=== PATIENT | female | born 1950 | race Caucasian/White ===

== ENCOUNTER → 2023-03-24 09:45 | Outpatient (BNVA) | payer MEDICARE, MEDICAID, SELFPAY | PROVIDERS: Visit Provider Nurse Practitioner Family | DX: J02.9 Acute pharyngitis, unspecified (principal) | CPT/HCPCS: 87071; 87880 ==

== ENCOUNTER 2024-06-19 11:28 | Emergency (ER) | payer MEDICARE, MEDICAID, SELFPAY ==
[2024-06-19 11:34] VITALS: BP 144/73; PULSE 72; RESP 18; TEMP 36.8; O2SAT 94; BMI 15.5
--- NOTE | 2024-06-19 12:33 | XRR_ITS ---
PROCEDURE INFORMATION: Exam: XR Chest Exam date and time: 06/19/2024 1:11 PM Age: 74 years old Clinical indication: Cough and dyspnea; Additional info: Dyspnea/cough TECHNIQUE: Imaging protocol: Radiologic exam of the chest. Views: 1 view. COMPARISON: No relevant prior studies available. FINDINGS: Lungs: No focal consolidation. Severe emphysematous changes with bullae in the right lung base. Pleural spaces: No evidence of pneumothorax. No evidence of pleural effusion. Heart/Mediastinum: Cardiomediastinal silhouette is narrowed. Bones/joints: No evidence of acute osseous abnormality. XR/XR chest 1V portable [id number] IMPRESSION: 1. No acute cardiopulmonary abnormality. 2. Severe emphysematous changes.
[2024-06-19] MEDS: sodium chloride 0.9% 1,000 ML 999 ML IV (12:54)
--- NOTE | 2024-06-19 13:03 | CTR_ITS ---
PROCEDURE INFORMATION: Exam: CT Abdomen And Pelvis With Contrast Exam date and time: 06/19/2024 2:26 PM Age: 74 years old Clinical indication: Abdominal pain; Generalized; Additional info: Abd pain TECHNIQUE: Imaging protocol: Computed tomography of the abdomen and pelvis with contrast. Radiation optimization: All CT scans at this facility use at least one of these dose optimization techniques: automated exposure control; mA and/or kV adjustment per patient size (includes targeted exams where dose is matched to clinical indication); or iterative reconstruction. Contrast material: OMNI 350; Contrast volume: 100 ml; Contrast route: INTRAVENOUS (IV); COMPARISON: CR XR chest 1V portable [id number] 06/19/2024 1:11 PM RADIATION DOSE METRICS: Total DLP (mGy-cm): 267.65 FINDINGS: Lungs: Severe emphysematous changes with a large 11.5 x 10.0 cm right basilar bulla. Diaphragm: No evidence of diaphragmatic defect. Liver: No focal hepatic lesion. Gallbladder and biliary ducts: Unremarkable. No intra-hepatic or extra-hepatic biliary dilatation. Pancreas: Unremarkable. Spleen: Unremarkable. Adrenal glands: Unremarkable. Kidneys and ureters: No renal parenchymal abnormality. There is bilateral pelviectasis without hydronephrosis. There are two small stones in the left UVJ, the largest of which measures 3 mm in the smaller 1 mm, apparently nonobstructive or minimally obstructive. There is indeterminate mildly dense material within the distal left ureter, possibly loose calcifications (image 59 of series 4 and image 15 of series 6). An underlying urothelial lesion would be difficult to exclude. Stomach and bowel: Colonic diverticulosis without evidence of acute diverticulitis. No bowel obstruction or perienteric inflammatory changes. There are few loops of mildly prominent thickened small bowel in the left hemiabdomen raising the question of a nonspecific enteritis. Appendix: Normal appendix. Intraperitoneal space: No evidence of free air or fluid collection. 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 The celiac trunk, SMA and MERLYN are grossly patent. No evidence of IVC thrombus. The portal vein, SMV and splenic veins are grossly patent. Lymph nodes: No adenopathy. Urinary bladder: Grossly unremarkable. Reproductive: Grossly unremarkable. Bilateral tubal ligation clips noted. Bones/joints: No evidence of acute fracture or aggressive osseous lesion. 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 Soft tissues: No evidence of fluid collection or hematoma in the superficial soft tissues. CT/CT abdomen pelvis w con* [id number] IMPRESSION: 1. Two small stones in the left UVJ without hydronephrosis, apparently nonobstructive or minimally obstructive. There is also indeterminate mildly dense material within the distal left ureter, possibly loose calcifications. An underlying urothelial lesion would be difficult to exclude. Consider follow-up urologic evaluation and CT urogram. 2. Possible nonspecific enteritis. 3. 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 Consider follow-up vascular evaluation.
--- NOTE | 2024-06-19 13:28 | ECG_ITS ---
[facility] Test Date: 2024-06-19 Pat Name: Trang Hernandez Department: Room: Gender: Female Telephone Collector: : 1950 Requested By: Mike Juarez Order Number: [id number] Allen MD: Ej Murillo M.D. Measurements Intervals [place] Rate: 73 P: 79 AL: 128 QRS: 80 QRSD: 77 T: 73 QT: 426 QTc: 470 Interpretive Statements SINUS RHYTHM No previous ECG available for comparison Electronically Signed On 06-19-2024 15:34:39 CDT by Ej Murillo M.D. [id number]
[2024-06-19 13:30] LABS: Protein Urine Neg (Negative); Urine Appearance Clear (CLEAR); Urine Color Yellow (Yellow); pH Urine 5 (5-7)
[2024-06-19 13:31] LABS: Add Urine Microscopic? YES; Bacteria Urine TRACE /hpf; Bilirubin Urine Neg (Negative); Blood Urine 3+ (Negative); Glucose Urine UA Norm (Normal); Ketones Urine Negative (Negative); Leukocyte Esterase Urine 1+ (Negative); Mucus Urine 1+ /hpf; Nitrate Urine Negative (Negative); RBC Urine 15-25 /hpf (0-2); Squamous Epithelial Cell Urine 0-4 /hpf (0-5); Urobilinogen Urine Neg (Negative)
[2024-06-19 13:32] LABS: Add Urine Culture? Yes; Hyaline Casts Urine 0-4 /lpf
[2024-06-19 13:47] LABS: Basophils % 0.6 %; Eosinophils # 0.1 10^3/uL (0.0-0.8); Eosinophils % 1.2 %; Hematocrit 40.2 % (36-47); Lymphocytes # 0.9 10^3/uL (0.8-4.8); Lymphocytes % 13.1 %; Mean Corpuscular HGB Conc 32.6 g/dL (30-55); Mean Corpuscular Hemoglobin 30.1 pg (27-33); Mean Corpuscular Volume 92.4 fl (85-98); Mean Platelet Volume 9.7 fL (7.4-10.4); Monocytes # 0.4 10^3/uL (0.2-0.9); Monocytes % 5.5 %; Neutrophils # 5.19 10^3/uL (1.8-7.7); Neutrophils % 79.4 %; Nucleated Red Blood Cells % 0 %; Platelet Count 197 10^3/cmm (157-399); Red Blood Count 4.35 10^6/uL (3.85-5.65); Red Cell Distribution Width 12.7 % (12.1-15.1); White Blood Count 6.54 10^3/uL (3.29-11.43)
[2024-06-19 14:10] LABS: Alanine Aminotransferase 10 U/L (0-33); Albumin Level 3.6 g/dL (3.5-5.2); Alkaline Phosphatase 73 U/L (35-105); Aspartate Amino Transferase 17 U/L (0-32); Blood Urea Nitrogen 13 mg/dL (8-23); Calcium 8.5 mg/dL (8.5-10.5); Carbon Dioxide 21 mmol/L (22-29); Chloride 104 mmol/L (98-107); Creatinine Clr Calc Pharmacy 38.6889; Globulin 3.2 g/dL (1.3-4.6); Glucose 90 mg/dL (65-115); Osmolality Calculated 286 mOsm/kg (285-295); Sodium 138 mmol/L (136-145); Total Bilirubin 0.7 mg/dL (0.15-1.2); Total Protein 6.8 g/dL (6.6-8.7)
--- NOTE | 2024-06-19 14:11 | ED_ITS ---
HPI - Abdominal Pain 2 General: Chief Complaint: Abdominal Pain Stated Complaint: left flank pain Time Seen by Provider: 06/19/24 12:33 History of Present Illness: 72-year-old female presents emergency ro om planing of the left lower quadrant abdominal pain began suddenly today. It radiates into her back she had problems with kidney stones in the past she denies fever sweats or chills she has had a little bit of loose stools but no vomiting. Denies dysuria urgency or frequency or hematuria. MD elicited complaint: abdominal pain and flank pain Pain Consistency: constant Location: LLQ Severity: moderate Radiation: back Exacerbating factors: nothing Relieving factors: nothing Associated Symptoms: Reports diarrhea and nausea; Denies chills, dysuria, fever(s), hematochezia and melena Review of Systems 2 Const: Denies: fever(s) or chills Card: Denies: chest pain Resp: Denies: dyspnea GI: Reports: abdominal pain, nausea and diarrhea; Denies: hematochezia or melena : Denies: dysuria, urinary frequency or urinary urgency Musc: Denies: neck pain or back pain Skin/Breast: Denies: rash PFSH ED 2 PFSH: Medical History COPD (chronic obstructive pulmonary disease) Social History Smoking and tobacco/nicotine status: never used tobacco/nicotine Physical Exam 2 Const: COMMON NORMALS: no acute distress GENERAL APPEARANCE: cooperative and comfortable ORIENTATION/CONSCIOUSNESS: Yes awake, Yes oriented to person, Yes oriented to place and Yes oriented to time HENMT: COMMON NORMALS: normocephalic, atraumatic and hearing grossly normal bilaterally HEAD & SCALP: normocephalic and atraumatic Resp: COMMON NORMALS: normal respiratory effort, No retractions, No use of accessory muscles and clear to auscultation bilaterally AUSCULTATION: clear to auscultation bilaterally Cardio: COMMON NORMALS: regular rate, regular rhythm and No murmurs present (Cardio) RATE: regular rate RHYTHM: regular rhythm GI: COMMON NORMALS: No hepatosplenomegaly present AUSCULTATION: Yes normoactive bowel sounds PALPATION: Yes Tenderness to palpation present (GI) Details: LLQ, No Guarding due to palpation present (GI) and Yes No hepatosplenomegaly present Extremity: COMMON NORMALS: normal to inspection, capillary refill normal, no clubbing, cyanosis or edema, no calf tenderness and no pedal edema Neuro: SENSORIUM/ORIENTATION: Yes oriented to person, Yes oriented to place and Yes oriented to time Skin: COMMON NORMALS: no rashes or lesions noted GENERAL SKIN EXAM: no rashes or lesions noted Course 2 Vital Signs: Vital signs: Vital Signs Temperature 98.3 F 06/19/24 11:34 Pulse Rate 83 06/19/24 16:08 Respiratory Rate 18 06/19/24 11:34 Blood Pressure 145/72 06/19/24 16:08 Pulse Oximetry 91 06/19/24 16:08 Oxygen Delivery Me thod Room Air 06/19/24 11:34 MDM - Abdominal Pain Medical Decision Making Left nephrolithiasis. Discharge patient home strain urine tamsulosin pain medications promethazine as needed. Case management to make arrangements to follow-up with urologist. If pain is uncontrolled return Lab Data 06/19/24 13:39 06/19/24 13:39 Labs/Radiology: Radiology Impressions Chest X-Ray 06/19/24 12:33 IMPRESSION: 1. No acute cardiopulmonary abnormality. 2. Severe emphysematous changes. Abdomen/Pelvis CT 06/19/24 13:03 IMPRESSION: 1. Two small stones in the left UVJ without hydronephrosis, apparently nonobstructive or minimally obstructive. There is also indeterminate mildly dense material within the distal left ureter, possibly loose calcifications. An underlying urothelial lesion would be difficult to exclude. Consider follow-up urologic evaluation and CT urogram. 2. Possible nonspecific enteritis. 3. 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 Consider follow-up vascular evaluation. Laboratory Results WBC 6.54 10^3/uL (3.29-11.43) 06/19/24 13:39 RBC 4.35 10^6/uL (3.85-5.65) 06/19/24 13:39 Hgb 13.10 g/dL (11.27-16.99) 06/19/24 13:39 Hct 40.2 % (36-47) 06/19/24 13:39 MCV 92.4 fl (85-98) 06/19/24 13:39 MCH 30.1 pg (27-33) 06/19/24 13:39 MCHC 32.6 g/dL (30-55) 06/19/24 13:39 RDW 12.7 % (12.1-15.1) 06/19/24 13:39 Plt Count 197 10^3/cmm (157-399) 06/19/24 13:39 MPV 9.7 fL (7.4-10.4) 06/19/24 13:39 Neut % (Auto) 79.4 % 06/19/24 13:39 Lymph % (Auto) 13.1 % 06/19/24 13:39 [place] % (Auto) 5.5 % 06/19/24 13:39 Eos % (Auto) 1.2 % 06/19/24 13:39 Baso % (Auto) 0.6 % 06/19/24 13:39 Neut # (Auto) 5.19 10^3/uL (1.8-7.7) 06/19/24 13:39 Lymph # (Auto) 0.9 10^3/uL (0.8-4.8) 06/19/24 13:39 [place] # (Auto) 0.4 10^3/uL (0.2-0.9) 06/19/24 13:39 Eos # (Auto) 0.1 10^3/uL (0.0-0.8) 06/19/24 13:39 Baso # (Auto) 0.0 10^3/uL (0.0-0.1) 06/19/24 13:39 Nucleated RBC % (auto) 0 % 06/19/24 13:39 Nucleated RBCs # 0.0 /100WBC 06/19/24 13:39 Sodium 138 mmol/L (136-145) 06/19/24 13:39 Potassium 4.0 mmol/L (3.5-5.1) 06/19/24 13:39 Chloride 104 mmol/L (98-107) 06/19/24 13:39 Carbon Dioxide 21 mmol/L (22-29) L 06/19/24 13:39 Anion Gap 17.0 (5-19) 06/19/24 13:39 BUN 13 mg/dL (8-23) 06/19/24 13:39 Creatinine 0.7 mg/dL (0.5-0.9) 06/19/24 13:39 GFR Calculation Not Reportable 06/19/24 13:39 Glucose 90 mg/dL (65-115) 06/19/24 13:39 Calculated Osmolality 286 mOsm/kg (285-295) 06/19/24 13:39 Calcium 8.5 mg/dL (8.5-10.5) 06/19/24 13:39 Total Bilirubin 0.7 mg/dL (0.15-1.2) 06/19/24 13:39 AST 17 U/L (0-32) 06/19/24 13:39 ALT 10 U/L (0-33) 06/19/24 13:39 Alkaline Phosphatase 73 U/L (35-105) 06/19/24 13:39 Total Protein 6.8 g/dL (6.6-8.7) 06/19/24 13:39 Albumin 3.6 g/dL (3.5-5.2) 06/19/24 13:39 Globulin 3.2 g/dL (1.3-4.6) 06/19/24 13:39 Urine Color Yellow (Yellow) 06/19/24 13:00 Urine Appearance Clear (CLEAR) 06/19/24 13:00 Urine pH 5 (5-7) 06/19/24 13:00 Ur Specific [place] 1.020 (1.005-1.030) 06/19/24 13:00 Urine Protein Neg (Negative) 06/19/24 13:00 Urine Glucose (UA) Norm (Normal) 06/19/24 13:00 Urine Ketones Negative (Negative) 06/19/24 13:00 Urine Blood 3+ (Negative) H 06/19/24 13:00 Urine Nitrate Negative (Negative) 06/19/24 13:00 Urine Bilirubin Neg (Negative) 06/19/24 13:00 Urine Urobilinogen Neg mg/dL (Negative) 06/19/24 13:00 Ur Leukocyte Esterase 1+ (Negative) H 06/19/24 13:00 Urine RBC 15-25 /hpf (0-2) H 06/19/24 13:00 Urine WBC 5-10 /hpf (0-5) H 06/19/24 13:00 Ur Squamous Epith Cells 0-4 /hpf (0-5) H 06/19/24 13:00 Amorphous Sediment Not Reportable 06/19/24 13:00 Urine Bacteria Trace /hpf (NONE) 06/19/24 13:00 Hyaline Casts 0-4 /lpf H 06/19/24 13:00 Urine Mucus 1+ /hpf 06/19/24 13:00 All radiology interpretation(s) finalized by discharge Discharge Plan Discharge Patient Disposition: Home Clinical Impression: Calculus of kidney Condition: Stable Prescriptions: New hydrocodone-acetaminophen 5-325 mg tablet 1 tab PO Q6H PRN (Reason: pain) Qty: 25 0RF promethazine 25 mg tablet 25 mg PO Q6H PRN (Reason: nausea and vomiting) Qty: 20 0RF tamsulosin 0.4 mg capsule 0.4 mg PO DAILY Qty: 14 0RF No Action Trelegy Ellipta 100-62.5-25 mcg blister with device 1 inh INHALATION Q24H Miralax 17 gram/dose Powder See Rx Instructions .ROUTE .COMPLEX Rx Instructions: TAKE 17 G MIXED IN 8 OUNCES LIQUID AND DRINK ENTIRE LIQUID DAILY. Vitamin D3 25 mcg (1,000 unit) Tablet 25 mcg PO DAILY Metamucil 0.4 gram Capsule 0.4 g PO DAILY Discharge Orders: Discharge ED (Routine); Ordered 06/19/24 Ordered By: Mike Hendricks Discharge Diet: Usual diet Discharge Activity: Resume usual activity Patient Instructions: Kidney Stones (ED), How to Strain Your Urine (ED), Opioid Safety, Pain Management Activity Restrictions/Additional Instructions: Thank you for choosing [facility] for your healthcare needs today. It is very important that you follow up as instructed or that you return to the Emergency Department should you have concerns or if your condition changes or worsens in any way. You are seen today for flank pain. On the CT you have 2 small kidney stones On the left.. Strain urine you are given pain medications. Will have you set up to follow-up with urology. Coding Level of Care Code ED Professional Shopper for Alfreda Krueger
[2024-06-19] MEDS: iohexol 350 mg/mL 500 mL Btl (per mL) IV (14:37)
[2024-06-19 16:08] VITALS: BP 145/72; PULSE 83; O2SAT 91
== END 2024-06-19 16:10 | disposition home or self-care (01) ==
PROVIDERS: Emergency Provider Family Medicine
DX: N20.0 Calculus of kidney (principal); J44.9 Chronic obstructive pulmonary disease, unspecified
CPT/HCPCS: 36415; 71045; 74177; 80053; 81001; 85025; 87086; 93005; 99285; J7030; Q9967